=== PATIENT | male | born 1945 | race Caucasian/White ===

== ENCOUNTER 2025-04-14 10:21 | Inpatient (IN) | payer MEDICARE, OTHER ==
[~2025-04-14] VITALS: Ht 170.2 cm; Wt 49.6 kg
[2025-04-14] MEDS ORDERED: ASPI81TA31 PO (10:40)
[2025-04-14] MEDS ORDERED: ERGO500040 PO (10:40)
[2025-04-14] MEDS ORDERED: DONE10TA44 PO (10:40)
[2025-04-14] MEDS ORDERED: ATOR40TA PO (10:40)
[2025-04-14] MEDS ORDERED: MELA3CAP2 PO (10:40)
[2025-04-14] MEDS ORDERED: ASCO500C18 PO (10:40)
[2025-04-14] MEDS ORDERED: AMLO10TA59 PO (10:40)
[2025-04-14] MEDS ORDERED: CARV3.122 PO (10:40)
[2025-04-14] MEDS ORDERED: FERR-68 PO (10:40)
[2025-04-14] MEDS ORDERED: SENN-291 PO (10:40)
[2025-04-14] MEDS ORDERED: OLAN5TAB3 PO (10:40)
[2025-04-14 11:10] LABS: PLATELET COUNT (AUTO) 217 K/uL (152-348); RED BLOOD CELL COUNT(AUTO) 3.85 MIL/uL (4.06-5.63); RED CELL DISTRIBUTION WIDTH 14.8 % (12.1-16.2); WHITE BLOOD COUNT (AUTO) 3.9 K/uL (3.6-10.2)
[2025-04-14 11:20] LABS: CREATININE 2.0 mg/dL (0.6-1.3); SODIUM SERUM 147 mmol/L (136-145); UREA NITROGEN, BLOOD 26 mg/dL (7-18)
[2025-04-14 11:26] LABS: ASPARTATE AMINOTRANSFERASE 12 U/L (15-37); TOTAL PROTEIN, SERUM 6.5 g/dL (6.4-8.2)
[2025-04-14] MEDS ORDERED: ACETAMINOPHEN 325 MG TABLET PO PRN (12:15)
[2025-04-14] MEDS ORDERED: ONDANSETRON 4 MG/2 ML VIAL IV PRN (12:15)
[2025-04-14] MEDS ORDERED: IV NS 1000 ML 1,000 ML IV SCH (12:15)
[2025-04-14] MEDS ORDERED: MAGNESIUM HYDROXIDE 30 ML LIQUID UDC PO PRN (12:15)
[2025-04-14] MEDS: IV DEXTROSE 5% 500 ML IV ONE (14:09)
[2025-04-14 14:22] VITALS: BP 153/73
[2025-04-14] MEDS ORDERED: SENN8.6T19 PO (14:53)
[2025-04-14 16:00] VITALS: BP 161/67; TEMP 97.7; O2SAT 98
[2025-04-14 19:22] VITALS: BP 153/61; TEMP 98.3; O2SAT 98
[2025-04-14] MEDS ORDERED: ATORVASTATIN 40 MG TABLET PO SCH (21:00)
[2025-04-14] MEDS: DONEPEZIL 10 MG TABLET PO SCH (21:00)
[2025-04-14 23:40] VITALS: BP 138/57; TEMP 98.2; O2SAT 97
[2025-04-15 05:59] VITALS: BP 164/76; TEMP 98.1; O2SAT 99
[2025-04-15 06:38] LABS: PLATELET COUNT (AUTO) 195 K/uL (152-348); RED BLOOD CELL COUNT(AUTO) 3.91 MIL/uL (4.06-5.63); RED CELL DISTRIBUTION WIDTH 14.4 % (12.1-16.2); WHITE BLOOD COUNT (AUTO) 6.6 K/uL (3.6-10.2)
[2025-04-15 07:22] LABS: CREATININE 1.9 mg/dL (0.6-1.3); SODIUM SERUM 144 mmol/L (136-145); UREA NITROGEN, BLOOD 26 mg/dL (7-18)
[2025-04-15 07:33] VITALS: BP 149/69; TEMP 98.6; O2SAT 96
[2025-04-15] MEDS: PANTOPRAZOLE SODIUM 40 MG VIAL IV SCH (08:39)
[2025-04-15] MEDS ORDERED: SENNOSIDES/DOCUSATE SODIUM TABLET PO SCH (09:00)
[2025-04-15] MEDS: AMLODIPINE 10 MG TABLET PO SCH (09:42)
[2025-04-15] MEDS: ASPIRIN 81 MG TAB.CHEW PO SCH (09:42)
[2025-04-15 11:26] VITALS: BP 157/69; TEMP 98.7; O2SAT 98
[2025-04-15 11:31] LABS: *BILIRUBIN,URIN NEGATIVE (NEGATIVE); *BLOOD, URINE 1+ (NEGATIVE); *CLARITY,URINE CLOUDY (CLEAR); *COLOR,URINE LIGHT YELLOW (YELLOW); *KETONES,URINE NEGATIVE (NEGATIVE); *PROTEIN,URINE 3+ (NEGATIVE); *UROBILINOGEN,URINE 0.2 E.U./dl (NORMAL); LEUKOCYTE ESTERASE ,URINE 3+ (NEGATIVE); NITRITE, URINE NEGATIVE (NEGATIVE); UGLUCOSE NEGATIVE (NEGATIVE)
[2025-04-15 11:55] LABS: *CREATININE,URINE 109.0 mg/dL (30-125); *SODIUM RNDM,URINE 71.0 mmol/L (40-220); *URINE TOTAL PROTEIN RANDOM 208.9 mg/dL (<150/24HR)
[2025-04-15 12:21] LABS: SQUAMOUS EPITHELIAL CELL,UR NONE SEEN /HPF (NONE SEEN)
[2025-04-15] MEDS: ENSURE ENLIVE (VAN) 240 ML LIQUID PO SCH (13:12)
[2025-04-15] MEDS: IV D5W 1000ML 1,000 ML IV ONE (14:16)
[2025-04-15 16:51] VITALS: BP 152/72; TEMP 97.8; O2SAT 96
[2025-04-15 19:00] VITALS: BP 143/62; TEMP 97.8; O2SAT 100
[2025-04-16] VITALS: BP 140/59; TEMP 98.2; O2SAT 96
[2025-04-16 04:00] VITALS: BP 110/90; TEMP 98.5; O2SAT 96
[2025-04-16 07:13] LABS: PLATELET COUNT (AUTO) 195 K/uL (152-348); RED BLOOD CELL COUNT(AUTO) 3.87 MIL/uL (4.06-5.63); RED CELL DISTRIBUTION WIDTH 14.3 % (12.1-16.2); WHITE BLOOD COUNT (AUTO) 6.6 K/uL (3.6-10.2)
[2025-04-16 07:31] LABS: ASPARTATE AMINOTRANSFERASE 6 U/L (15-37); CREATINE KINASE, TOTAL 38 U/L (39-308); CREATININE 2.3 mg/dL (0.6-1.3); SODIUM SERUM 143 mmol/L (136-145); TOTAL PROTEIN, SERUM 6.1 g/dL (6.4-8.2); UREA NITROGEN, BLOOD 32 mg/dL (7-18)
[2025-04-16 07:51] VITALS: BP 161/62; TEMP 98.3; O2SAT 97
[2025-04-16] MEDS: PANTOPRAZOLE SODIUM 40 MG TABLET.DR PO SCH (08:05)
[2025-04-16 09:54] VITALS: BP 158/72; TEMP 97.9; O2SAT 98
[2025-04-16] MEDS ORDERED: CEPH500C2 PO (12:44)
[2025-04-16 14:12] VITALS: BP 150/70; TEMP 98; O2SAT 98
[2025-04-17 07:07] LABS: PTH, INTACT 30 pg/mL (15-65)
== END 2025-04-16 15:40 | disposition home health service (06) | DRG 73 ==
LOC: ER 10:21 → TELE3 14:22 → MEDSURG3 04-16 08:15
DX: G90.89 Other disorders of autonomic nervous system (principal); E43 Unspecified severe protein-calorie malnutrition; E87.0 Hyperosmolality and hypernatremia; Z68.1 Body mass index [BMI] 19.9 or less, adult; N39.0 Urinary tract infection, site not specified; G93.40 Encephalopathy, unspecified; F01.50 Vascular dementia, unspecified severity, without behavioral disturbance, psychotic disturbance, mood disturbance, and anxiety; E86.0 Dehydration; I10 Essential (primary) hypertension; Z66 Do not resuscitate; N18.9 Chronic kidney disease, unspecified; R00.1 Bradycardia, unspecified; D64.9 Anemia, unspecified; Z79.82 Long term (current) use of aspirin; Z79.899 Other long term (current) drug therapy; E88.09 Other disorders of plasma-protein metabolism, not elsewhere classified; I12.9 Hypertensive chronic kidney disease with stage 1 through stage 4 chronic kidney disease, or unspecified chronic kidney disease
CPT/HCPCS: 36415; 70450; 71045; 76770; 83735; 83970; 84100; 84155; 84165; 84300; 84443; 84484; 85025; 85730; 87077; 87086; 93307; A4606; A4663; G0378; J0696; J2470; J7060; J7070

== ENCOUNTER 2025-06-15 12:26 | Inpatient (IN) | payer MEDICARE, OTHER ==
[~2025-06-15] VITALS: Ht 170.2 cm; Wt 52.3 kg
[~2025-06-15 12:26] MED LIST: AMLO10TA59 PO; ASPI81TA31 PO; CARV3.122 PO; CEPH500C2 PO; DONE10TA44 PO; ERGO500040 PO; MELA3CAP2 PO; OLAN5TAB3 PO; SENN8.6T19 PO
[2025-06-15 12:54] LABS: PLATELET COUNT (AUTO) 219 K/uL (152-348); RED BLOOD CELL COUNT(AUTO) 4.11 MIL/uL (4.06-5.63); RED CELL DISTRIBUTION WIDTH 13.8 % (12.1-16.2); WHITE BLOOD COUNT (AUTO) 5.1 K/uL (3.6-10.2)
[2025-06-15 13:02] LABS: CREATININE 2.1 mg/dL (0.6-1.3); SODIUM SERUM 146 mmol/L (136-145); UREA NITROGEN, BLOOD 29 mg/dL (7-18)
[2025-06-15 13:08] LABS: ASPARTATE AMINOTRANSFERASE 18 U/L (15-37); TOTAL PROTEIN, SERUM 7.2 g/dL (6.4-8.2)
[2025-06-15] MEDS: IV NORMAL SALINE 500 ML BAG IV ONE (13:15)
[2025-06-15 14:30] VITALS: BP 126/61
[2025-06-15] MEDS ORDERED: ATOR40TA PO (15:54)
[2025-06-15] MEDS ORDERED: FERR325T24 PO (15:56)
[2025-06-15] MEDS ORDERED: ASCO500C18 PO (15:56)
[2025-06-15 16:00] VITALS: BP 165/78; TEMP 97.5; O2SAT 97
[2025-06-15] MEDS ORDERED: ACETAMINOPHEN 325 MG TABLET PO PRN (18:30)
[2025-06-15] MEDS: AMLODIPINE 10 MG TABLET PO SCH (18:30)
[2025-06-15] MEDS: IV 1/2NS 1000 ML 1,000 ML IV PRN (18:39)
[2025-06-15] MEDS: ERGOCALCIFEROL 50,000 UNIT CAPSULE PO SCH (18:52)
[2025-06-15 19:10] VITALS: BP 159/69; TEMP 98.1; O2SAT 97
[2025-06-15] MEDS: DONEPEZIL 10 MG TABLET PO SCH (20:31)
[2025-06-15] MEDS: OLANZAPINE 5 MG TABLET PO SCH (20:31)
[2025-06-15] MEDS: DOCUSATE SODIUM 100 MG CAPSULE PO SCH (20:31)
[2025-06-15] MEDS: MELATONIN 3 MG TABLET PO SCH (20:31)
[2025-06-15 23:49] VITALS: BP 147/63; TEMP 98; O2SAT 95
[2025-06-16 05:31] VITALS: TEMP 97.4; O2SAT 99
[2025-06-16 06:25] VITALS: BP 178/79; TEMP 97.4; O2SAT 99
[2025-06-16] MEDS: PANTOPRAZOLE SODIUM 40 MG TABLET.DR PO SCH (06:40)
[2025-06-16 07:18] LABS: PLATELET COUNT (AUTO) 197 K/uL (152-348); RED BLOOD CELL COUNT(AUTO) 3.79 MIL/uL (4.06-5.63); RED CELL DISTRIBUTION WIDTH 13.6 % (12.1-16.2); WHITE BLOOD COUNT (AUTO) 3.9 K/uL (3.6-10.2)
[2025-06-16 07:39] VITALS: BP 147/56; TEMP 97.6; O2SAT 98
[2025-06-16 08:12] LABS: ASPARTATE AMINOTRANSFERASE 18 U/L (15-37); CREATININE 1.7 mg/dL (0.6-1.3); SODIUM SERUM 142 mmol/L (136-145); TOTAL PROTEIN, SERUM 6.2 g/dL (6.4-8.2); UREA NITROGEN, BLOOD 24 mg/dL (7-18)
[2025-06-16] MEDS: ASPIRIN 81 MG TAB.CHEW PO SCH (08:25)
[2025-06-16] MEDS: SENNOSIDES 1 TABLET PO SCH (08:26)
[2025-06-16 09:01] LABS: *BILIRUBIN,URIN NEGATIVE (NEGATIVE); *COLOR,URINE YELLOW (YELLOW); *KETONES,URINE NEGATIVE (NEGATIVE); *PROTEIN,URINE 2+ (NEGATIVE); *UROBILINOGEN,URINE 0.2 E.U./dl (NORMAL); LEUKOCYTE ESTERASE ,URINE 2+ (NEGATIVE); NITRITE, URINE POSITIVE (NEGATIVE); UGLUCOSE NEGATIVE (NEGATIVE)
[2025-06-16 09:09] LABS: *BLOOD, URINE TRACE (NEGATIVE); *CLARITY,URINE SLIGHTLY HAZY (CLEAR)
[2025-06-16 09:10] LABS: URINE AMORPHOUS URATE MANY /HPF
[2025-06-16 10:56] VITALS: BP 143/64; TEMP 98; O2SAT 99
[2025-06-16 15:16] VITALS: BP 144/97; TEMP 97.8; O2SAT 94
[2025-06-16 19:00] VITALS: BP 152/70; TEMP 97.8; O2SAT 97
[2025-06-17] VITALS (8 sets, daily range): BP systolic 139–186; BP diastolic 62–92; TEMP 97.8–99.2; O2SAT 95–98
[2025-06-17] MEDS: ENSURE ENLIVE (VAN) 240 ML LIQUID PO SCH (17:38)
[2025-06-18 06:00] VITALS: BP 159/61; TEMP 97.5; O2SAT 98
[2025-06-18 06:44] LABS: PLATELET COUNT (AUTO) 218 K/uL (152-348); RED BLOOD CELL COUNT(AUTO) 3.99 MIL/uL (4.06-5.63); RED CELL DISTRIBUTION WIDTH 14.3 % (12.1-16.2); WHITE BLOOD COUNT (AUTO) 4.9 K/uL (3.6-10.2)
[2025-06-18 06:52] LABS: CREATININE 1.5 mg/dL (0.6-1.3); SODIUM SERUM 143 mmol/L (136-145); UREA NITROGEN, BLOOD 29 mg/dL (7-18)
[2025-06-18 11:03] VITALS: BP 168/73; TEMP 98.4; O2SAT 82
[2025-06-18] MEDS ORDERED: SULF1TAB48 PO (11:56)
[2025-06-18] MEDS ORDERED: PANT40TA49 PO (11:56)
[2025-06-18] MEDS ORDERED: DOCU-141 PO (11:56)
[2025-06-18] MEDS ORDERED: ACET325T53 PO (11:56)
[2025-06-18] MEDS ORDERED: OLAN5TAB70 PO (11:56)
[2025-06-18] MEDS ORDERED: ATOR10TA PO (11:56)
[2025-06-18] MEDS ORDERED: CEFEPIME HCL 1 GM in IV DEXTROSE 5% 100 ML IV SCH (13:15)
[2025-06-18] MEDS: CEFEPIME (MAXEPIME) 1 G in IV DEXTROSE 5% 50 ML IV SCH (13:42)
[2025-06-18 15:10] VITALS: BP 155/73; TEMP 97.8; O2SAT 100
[2025-06-18] MEDS: IV NORMAL SALINE 250 ML IV ONE (17:38)
[2025-06-18] MEDS ORDERED: SWABABLE VALVE TRANSFER SET EA MC ONE (18:28)
[2025-06-18] MEDS ORDERED: IV NORMAL SALINE 250 ML IV ONE (18:29)
[2025-06-18] MEDS ORDERED: IOHEXOL 350 100 ML INFUS..BTL ONE (18:29)
[2025-06-18 20:09] VITALS: BP 170/75; TEMP 97.9; O2SAT 98
[2025-06-18] MEDS: ATORVASTATIN 10 MG TABLET PO SCH (20:59)
[2025-06-19 05:00] VITALS: BP 163/65; TEMP 97.7; O2SAT 97
[2025-06-19] MEDS: CARVEDILOL 6.25 MG TABLET PO SCH (09:47)
[2025-06-19 10:51] VITALS: BP 130/51; TEMP 97.9; O2SAT 96
== END 2025-06-19 15:00 | DRG 73 ==
LOC: ER 12:26 → TELE3 14:42 → MEDSURG3 06-17 08:28
PROVIDERS: ADMIT Internal Medicine; ATTEND Internal Medicine
DX: G90.89 Other disorders of autonomic nervous system (principal); N17.0 Acute kidney failure with tubular necrosis; D68.59 Other primary thrombophilia; N39.0 Urinary tract infection, site not specified; Z68.1 Body mass index [BMI] 19.9 or less, adult; E44.0 Moderate protein-calorie malnutrition; F01.53 Vascular dementia, unspecified severity, with mood disturbance; I13.0 Hypertensive heart and chronic kidney disease with heart failure and stage 1 through stage 4 chronic kidney disease, or unspecified chronic kidney disease; E87.0 Hyperosmolality and hypernatremia; I47.10 Supraventricular tachycardia, unspecified; S00.81XA Abrasion of other part of head, initial encounter; W19.XXXA Unspecified fall, initial encounter; Y92.099 Unspecified place in other non-institutional residence as the place of occurrence of the external cause; Z66 Do not resuscitate; R62.7 Adult failure to thrive; B96.89 Other specified bacterial agents as the cause of diseases classified elsewhere; I65.23 Occlusion and stenosis of bilateral carotid arteries; Z74.09 Other reduced mobility; F20.9 Schizophrenia, unspecified; M15.9 Polyosteoarthritis, unspecified; D64.9 Anemia, unspecified; E78.5 Hyperlipidemia, unspecified; I25.10 Atherosclerotic heart disease of native coronary artery without angina pectoris; E88.09 Other disorders of plasma-protein metabolism, not elsewhere classified; I65.9 Occlusion and stenosis of unspecified precerebral artery; G93.89 Other specified disorders of brain; N18.9 Chronic kidney disease, unspecified; Z87.891 Personal history of nicotine dependence; Z79.899 Other long term (current) drug therapy; Z79.82 Long term (current) use of aspirin
CPT/HCPCS: 36415; 70450; 70496; 71045; 83735; 84100; 84443; 84484; 85025; 85730; 87077; 87086; 93880; A4606; A4663; G0378; J0360; J0692; J0696; J7040; J7120; Q9967